=== PATIENT | male | born 1990 | race Caucasian/White ===

== ENCOUNTER 2019-10-27 18:39 | Observation (INO) | payer OTHER ==
[~2019-10-27] VITALS: Ht 162.6 cm; Wt 73.3 kg
[2019-10-27 20:30] VITALS: BP 127/56; PULSE 79; TEMP 98.2
--- NOTE | 2019-10-27 20:45 | NUR ---
Received patient from ER admission. Patient is alert and oriented. With INT on Right AC. Started NS 1000ml at 75ml/hr. Assessment completed. Patient states he wasn't able to eat and drink for 6 days since he had a throat pain. Tried checking his throat but he cannot open his mouth fully. Denies any difficulty of breathing. He states he has throat pain mostly on his right side.
[2019-10-27] MEDS ORDERED: CLEOCIN HCL300 MG PO (20:52)
[2019-10-27] MEDS ORDERED: PROTEIN1 PDR PO (20:54)
[2019-10-27] MEDS ORDERED: MASON NATURAL1200 MG PO (20:55)
[2019-10-27 23:54] VITALS: BP 115/58; PULSE 73; TEMP 97.8
[2019-10-28 04:36] VITALS: BP 107/45; PULSE 74; TEMP 97.4
--- NOTE | 2019-10-28 05:46 | NUR ---
Patient had an uneventful night. No difficulty of breathing or severe pain noted. He still has some pain when swallowing and wasn't able to eat that much. He tolerated the clindamycin and dexamethasone. No febrile episodes. Will endorse to day shift nurse.
[2019-10-28 07:57] VITALS: BP 118/59; PULSE 64; TEMP 97.9
--- NOTE | 2019-10-28 09:35 | NUR ---
Pt assessment completed and charted. Medications administered per OCT. Pt laying in bed, states he has some pain to the right side of the jaw/neck still but able to swallow a little better, ate "[place] from [employer] last night". Pt states he thinks he "sounds better than yesterday" as well. Pt has RAC IV w/ NS running at 75 ml hour w/o complications. Pt denies any nausea or vomiting. No other concerns expressed at this time.
--- NOTE | 2019-10-28 10:57 | NUR ---
Pt discharge instructions discussed and reviewed with patient who verbalized understanding. RAC IV dc'd w/ catheter tip intact and no complications. Pt escortedout by ALICIA Shafer. No further needs expressed.
== END 2019-10-28 10:58 | disposition home or self-care (01) ==
LOC: COL.ER 18:39 → MEDICAL 19:36
PROVIDERS: ADMIT Student in an Organized Health Care Education/Training Program
DX: J39.1 Other abscess of pharynx (principal); Z88.1 Allergy status to other antibiotic agents
CPT/HCPCS: G0378; J1100; J7030